=== PATIENT | male | born 1995 | race Caucasian/White ===

== ENCOUNTER 2018-07-18 12:44 | Emergency (ER) | payer OTHER ==
[~2018-07-18] VITALS: Ht 180.3 cm; Wt 137.0 kg
[2018-07-18] MEDS ORDERED: KETOROLAC 60MG/2ML VIAL IM STA (16:45)
[2018-07-18 18:59] VITALS: BP 156/96
== END 2018-07-18 19:00 | disposition home or self-care (01) ==
LOC: ER 12:44
DX: S20.212A Contusion of left front wall of thorax, initial encounter (principal); M94.0 Chondrocostal junction syndrome [Tietze]; F12.10 Cannabis abuse, uncomplicated; M79.602 Pain in left arm; R07.9 Chest pain, unspecified; X58.XXXA Exposure to other specified factors, initial encounter; Y93.61 Activity, american tackle football; Y92.89 Other specified places as the place of occurrence of the external cause; Y99.8 Other external cause status
CPT/HCPCS: 71101; 93005; 96372; 99284; J1885